=== PATIENT | female | born 1960 | race Caucasian/White ===

== ENCOUNTER 2016-12-08 03:29 | Inpatient (IN) | payer OTHER ==
[2016-12-08] VITALS (8 sets, daily range): BP systolic 100–114; BP diastolic 47–77
[~2016-12-08] VITALS: Ht 180.3 cm; Wt 86.6 kg
--- NOTE | 2016-12-08 07:59 | ED NURSING NOTES ---
Clinical Report - Nurses [facility] [address] [place] [address] 12/08/2016 3:36 Patient: PERLA EVANS TRIAGE Triage time 03:41 Dec 08 2016. Acuity: LEVEL 3. Chief Complaint: BOIL. 03:31 12/08/16. SEPSIS SCREEN: Sepsis Screen. Negative (no infection suspected/documented). --03:45 Dena Rios R.N. 03:31 12/08/16. BP: 143/68. HR: 102. RR: 18. O2 saturation: 100%. Temp: 99.0 F. Pain level now 9/10. --03:45 Dena Rios R.N. Weight: 77.1 kg. Height/Length: 71 inches. BMI: 23.7. --03:40 Dena Rios R.Laine. Medications None. --03:42 Dena Rios R.N. Allergies Sulfa Antibiotics. --03:42 Dena Rios R.Laine. Medication/allergy information source: the patient. --03:45 Dena Rios R.N. History Arrived by private vehicle. Historian: patient. Accompanied by friend. Reported as (BOTH BUTTOCKS). Onset. (4 days ago). Treatment [employer]: None. SOCIAL HX: Heavy tobacco smoker- 1 pack per day. History of drug use: heroin. Recently used drugs just prior to arrival. No alcohol use. No infectious disease exposure. ABUSE ASSESSMENT: No report of abuse. SELF HARM ASSESSMENT: A self harm assessment was performed. The patient answered "no" to the question "Have you recently felt down, depressed, or hopeless?", "Have you noticed less interest or pleasure in doing things?", "Do you have thoughts of harming or killing yourself?", "Are you here because you tried to hurt yourself?", "Have you ever tried to hurt yourself before today?", "Have you recently had thoughts about harming or killing others?" and "Do you have any dangerous items in your possession?". NUTRITIONAL RISK ASSESSMENT: The nutritional risk assessment revealed no deficiencies. FUNCTIONAL ASSESSMENT: Functional assessment: no impairments noted. LEARNING NEEDS ASSESSMENT: The learning needs assessment revealed no barriers. SKIN INTEGRITY ASSESSMENT: Skin integrity risk assessment completed. No skin integrity risk identified. --03:45 Dena Rios R.N. PROBLEMS: Cervical cancer. Congestive Heart Failure. COPD - Chronic Obstructive Pulmonary Disease. --03:43 Dena Rios R.N. Fibromyalgia. Substance Abuse. --03:45 Dena Rios R.N. Hepatitis C. --05:57 Dena Rios R.N. ADDITIONAL SURGERIES: Cholecystectomy. --03:43 Dena Rios R.N. Interventions ID band on patient. --03:45 Dena Rios R.N. PHYSICAL ASSESSMENT 04:05 12/08/16. Ambulatory to room. GENERAL / NEURO / PSYCH: Alert. Appears in pain. Oriented X 4. HEENT: Pupils equal, round and reactive to light. Mucous membranes are pink. RESPIRATORY: Respirations not labored. Breath sounds within normal limits. CVS: Pulses within normal limits. EXTREMITIES: ( legs covered in old scar tissue). SKIN: Skin is warm and dry. Tenderness on the right buttock and left buttock. Increased warmth on the right buttock and left buttock. Erythema on the right buttock and left buttock. --04:05 Dena Rios R.N. NURSING PROGRESS NOTES 03:48 12/08/16. The initial plan of care for this patient includes an assessment with efforts to address the presence of pain; impairment of the integumentary system. This plan of care was discussed with the patient. Patient gowned. Patient identifiers checked. Call light placed in reach. Side rails up x 1. Bed placed in lowest position. Brakes of bed on. Patient ready for evaluation. --03:48 Dena Rios R.N. 04:05 12/08/16. Urine collected. Specimen labeled in the presence of the patient (and held). --04:05 Dena Rios R.N. 05:00 12/08/2016 Site #1 started via IV in the right antecubital space with an 20g angiocath, with aseptic technique and good blood return; one attempt. Blood drawn: rainbow set and cultures x1. Labeled in the presence of the patient and sent to the lab. Saline lock flushed with 10 mL saline. --05:07 Dena Rios R.N. 05:01 12/08/2016 Started bag #1 500 mL IV Fluids IV NS (Saline); at 999 mL/hr over 30 minute(s) via site #1 via IV pump. Allergies verified and confirmed 5 rights. IV patency established. IV site checked: no pain, redness, or swelling. IV flushed thoroughly pre- and post-medication administration. --05:07 Dena Rios R.N. 05:02 12/08/2016 Dilaudid (HYDROmorphone HCl PF) IVP 0.5 mg given over 1 minute(s) via site #1. Allergies verified, confirmed 5 rights and sedative warning given to the patient. IV patency established. IV site checked: no pain, redness, or swelling. IV flushed thoroughly pre- and post-medication administration. IVP given by RN. --05:08 Dena Rios R.N. 05:04 12/08/2016 Ativan (LORazepam) IVP 0.5 mg given over 1 minute(s) via site #1. Allergies verified, confirmed 5 rights and sedative warning given to the patient. IV patency established. IV site checked: no pain, redness, or swelling. IV flushed thoroughly pre- and post-medication administration. IVP given by RN. --05:09 Dena Rios R.N. <<STRICKEN ENTRY-- Oxygen administered by nasal cannula at 2 liters (due to multiple O2 readings in the 80's. O2 improves to 100% on O2.). --05:21 Christy Moralez R.N. --END STRIKE>> Charted On Wrong Patient --06:04 Christy Moralez R.N. 05:32 12/08/2016 IV Fluids IV NS via IV site #1 Rate Changed: bag #1 decreased to 250 mL/hr via IV pump. IV patency established. IV site checked: no pain, redness, or swelling. IV flushed thoroughly. --05:32 Dena Rios R.N. 05:35 12/08/16. Reassessment after fluids administered and medication administered. She is calm and resting quietly. Overall patient status is improved- she states feels better. --06:03 Dena Rios R.N. 06:00 12/08/2016 Hold IV Fluids IV NS: due to diagnostic studies. --06:00 Christy Moralez R.N. 06:01 12/08/16. Patient transported to [place] by stretcher. --06:05 Dena Rios R.N. 06:15 12/08/2016 Restart IV Fluids IV NS: bag #1 250 mL/hr via IV pump. IV patency established. IV site checked: no pain, redness, or swelling. IV flushed thoroughly. Confirmed 5 Rights. --06:15 Christy Moralez R.N. 06:18 12/08/16. BP: 106/69. HR: 95. RR: 16. O2 saturation: 89%. Pain level now 5/10. --06:18 Dena Rios R.N. 06:18 12/08/16. Oxygen administered by nasal cannula at 2 liters (applied for o2 sats <90%). --06:18 Dena Rios R.N. 07:02 12/08/16. Care transferred and report given (to CHELSEA Guevara). --07:02 Dena Rios R.N. 07:12 12/08/16. Care transferred and report received (STACI Fernandes). --07:12 Kendall Worley R.N. The patient reports no complaints and she is sleeping. --07:39 Mayd Calixto R.N. 07:35 12/08/16. BP: 101/70. HR: 94. RR: 14. O2 saturation: 95% on nasal cannula at 3 liters/minute. Fierro-Devlin pain scale: 0/10. --07:39 Mady Calixto R.N. 08:20 12/08/16. BP: 103/64. HR: 91. RR: 15. O2 saturation: 92% on room air. Temp: 99.7 F. Pain level now 5/10. --08:20 Mady Calixto R.N. 08:15. Patient ID band checked for patient name and birthdate: patient confirmed. Instructions provided to collect clean catch urine and patient verbalized understanding. Clean catch urine collected with return of verito-colored cloudy urine; sample sent to lab for urinalysis, culture and drug screen. Specimen labeled in the presence of the patient. --08:31 Mady Calixto R.N. 08:23 12/08/2016 IV Fluids IV NS Discontinued: bag #1 infused. Total amount infused: 1000 mL. --09:23 Mady Calixto R.N. 09:04 12/08/16. ( ultrasound at bedside). --09:04 Mady Calixto R.N. DISPOSITION / DISCHARGE Report was given. (attempted to call report to ACRN). --10:11 Mady Calixto R.N. Condition at departure: unchanged and stable. Admitted to Acute Care. Transported via stretcher by tech. Report was given. (Lucia Medina ACRN). ( Partnership agreement filled out by patient and this RN). Patient's personal items include, Pt states she has; items were placed in belongings bag and transported with the patient. --10:43 Mady Calxito R.N. 10:32 12/08/16. BP: 123/84. HR: 95. RR: 16. O2 saturation: 94% on room air. Temp: 99.3 F (oral). Pain level now 10. --10:43 Mady Calixto R.N. 10:43 12/08/16. Departure time: 1050. --10:43 Mady Calixto R.N. Transported via by nurse. --11:04 Mady Calixto R.N. Locked/Released at 12/08/2016 12:26 by Mady Calixto R.N.
--- NOTE | 2016-12-08 07:59 | ED ORDER SUMMARY ---
..... Patient: PERLA EVANS OrderSheet [facility] VisitID: [id number] [address] [place] [address] 56y, F Registration Date/Time: 12/08/2016 ORDER SHEET Weight: 77.1 kg Allergies: Sulfa Antibiotics GENERAL ORDERS: Blood Culture (No) (N/A) Urgent (04:42 12/08/2016 Edwar PAZ) (Ack 4:47 AMcQuoid ER Tech1) (5:09 EInderbitzen R.N.) CT Lower Extremity With Contrast - Right (Include both buttocks evaluate position and size of abscess. ) Urgent (04:45 12/08/2016 Edwar PAZ) (Ack 4:47 AMcQuoid ER Tech1) (6:15 RCollier R.N.) CBC w Diff Urgent (04:46 12/08/2016 Edwar PAZ) (Ack 4:47 AMcQuoid ER Tech1) (5:09 EInderbitzen R.N.) CMP Urgent (04:46 12/08/2016 Edwar PAZ) (Ack 4:47 AMcQuoid ER Tech1) (5:09 EInderbitzen R.N.) CT Lower Extremity With Contrast - Left Urgent (05:18 12/08/2016 Edwar PAZ) (Ack 5:43 CHategekimana) (6:15 RCollier R.N.) UA-Culture if indicated Urgent (08:11 12/08/2016 Edwar PAZ) (Ack 8:15 Luke) (8:31 KWilliams R.N.) Urine Drug Screen Urgent (08:11 12/08/2016 Edwar PAZ) (Ack 8:15 MAYLINoerner) (8:31 KWilliams R.N.) US Soft Tissue Anywhere (buttocks. ) Urgent (08:12 12/08/2016 Edwar PAZ) (Ack 8:15 Luke) (9:19 KWilliams R.N.) MEDICATION ORDERS: IV FLUIDS: IV NS : initial bolus 500 mL (1000 mL/hr), then 250 mL/hr for 2h (NOW); Routine (04:42 12/08/2016 Edwar PAZ) (5:07 EInderbitzen R.N.) Dilaudid IV 0.5 mg (NOW) (04:46 12/08/2016 Edwar PAZ) (5:08 EInderbitzen R.N.) Ativan IV 0.5 mg (NOW) (04:46 12/08/2016 Edwar PAZ) (5:09 EInderbitzen R.N.) ORDER SHEET NOTES: [Electronically signed by Mady Calixto R.N. (12:12/08/2016)] [Electronically signed by Orlando Randolph MD (22:09 12/09/2016)] [Electronically locked/signed by Mady Calixto R.N. (12:12/08/2016)]
--- NOTE | 2016-12-08 07:59 | ED ORDER SUMMARY ---
..... Patient: PERLA EVANS OrderSheet [facility] VisitID: [id number] [address] [place] [address] 56y, F Registration Date/Time: 12/08/2016 ORDER SHEET Weight: 77.1 kg Allergies: Sulfa Antibiotics GENERAL ORDERS: Blood Culture (No) (N/A) Urgent (04:42 12/08/2016 Edwar PAZ) (Ack 4:47 AMcQuoid ER Tech1) (5:09 EInderbitzen R.N.) CT Lower Extremity With Contrast - Right (Include both buttocks evaluate position and size of abscess. ) Urgent (04:45 12/08/2016 Edwar PAZ) (Ack 4:47 AMcQuoid ER Tech1) (6:15 RCollier R.N.) CBC w Diff Urgent (04:46 12/08/2016 Edwar PAZ) (Ack 4:47 AMcQuoid ER Tech1) (5:09 EInderbitzen R.N.) CMP Urgent (04:46 12/08/2016 Edwar PAZ) (Ack 4:47 AMcQuoid ER Tech1) (5:09 EInderbitzen R.N.) CT Lower Extremity With Contrast - Left Urgent (05:18 12/08/2016 Edwar PAZ) (Ack 5:43 CHategekimana) (6:15 RCollier R.N.) UA-Culture if indicated Urgent (08:11 12/08/2016 Edwar PAZ) (Ack 8:15 Luke) (8:31 KWilliams R.N.) Urine Drug Screen Urgent (08:11 12/08/2016 Edwar PAZ) (Ack 8:15 MAYLINoerner) (8:31 KWilliams R.N.) US Soft Tissue Anywhere (buttocks. ) Urgent (08:12 12/08/2016 Edwar PAZ) (Ack 8:15 Luke) (9:19 KWilliams R.N.) MEDICATION ORDERS: IV FLUIDS: IV NS : initial bolus 500 mL (1000 mL/hr), then 250 mL/hr for 2h (NOW); Routine (04:42 12/08/2016 Edwar PAZ) (5:07 EInderbitzen R.N.) Dilaudid IV 0.5 mg (NOW) (04:46 12/08/2016 Edwar PAZ) (5:08 EInderbitzen R.N.) Ativan IV 0.5 mg (NOW) (04:46 12/08/2016 Edwar PAZ) (5:09 EInderbitzen R.N.) ORDER SHEET NOTES: [Electronically signed by Mady Calixto R.N. (12:12/08/2016)] [Electronically signed by Orlando Randolph MD (22:09 12/09/2016)] [Electronically locked/signed by Mady Calixto R.N. (12:12/08/2016)]
--- NOTE | 2016-12-08 07:59 | ED CLINICAL REPORT ---
Clinical Report - Physicians/Mid Levels [facility] [address] [place] [address] 12/08/2016 3:36 Patient: PERLA EVANS Time Seen: 04:35 Dec 08 2016. Arrived- By private vehicle. Historian- patient. CPT: ER phys charges level 5 (#[id number]). HISTORY OF PRESENT ILLNESS Chief Complaint: LESION. This started about 4 days EKG MONITOR and is still present. It is described as painful. It has been located on the right and left buttocks. A cause has been identified. (IVDA). Similar symptoms previously: As bad. Recent medical care: Not recently seen/assessed. REVIEW OF SYSTEMS No fever, chills, sore throat or throat or cough. No difficulty breathing, hoarseness, lump in throat, enlarged lymph nodes or chest pain. No abdominal pain, nausea, diarrhea, difficulty with urination or genital lesions. No joint pain, weakness, diabetic symptoms or easy bruising. All systems otherwise negative, except as recorded above. PAST HISTORY Cervical cancer. Congestive Heart Failure. COPD - Chronic Obstructive Pulmonary Disease. Fibromyalgia. Substance Abuse. Acute renal failure : Resolved Hep C ADDITIONAL SURGERIES: Cholecystectomy. SOCIAL HISTORY History of heavy IV drug use: heroin. ADDITIONAL NOTES The nursing notes have been reviewed. PHYSICAL EXAM Vital Signs: 12/08/2016 03:31 BP: 143/68. HR: 102. RR: 18. O2 saturation: 100%. Temp: 99.0 F. Appearance: Alert. Patient in mild distress. Eyes: Conjunctivae and eyelids normal. ENT: Pharynx normal. Neck: Neck supple. CVS: Normal heart rate and rhythm. Heart sounds normal. No cardiac murmur. Respiratory: No respiratory distress. Breath sounds normal. Chest nontender. Abdomen: Nontender. Skin: Multiple large tender indurated areas with cellulitis to right buttock and left buttock. Abscess. Extremities: Normal external inspection. (right ,upper , posterior thigh is tender.). Neuro: Oriented X 3. No motor deficit. No sensory deficit. LABS, X-RAYS, AND EKG Laboratory Tests: CBC w Diff: (TERRY: 12/08/2016 05:00) ( MsgRcvd 12/08/2016 05:31) Final results Test Result Flag Units (Reference) WHITE BLOOD COUNT 13.1 H K/uL (4.5-11.5) RED BLOOD COUNT 4.84 M/uL (4.00-5.20) HEMOGLOBIN 12.7 gm/dL (12.0-16.0) HEMATOCRIT 38.9 % (36.0-46.0) MEAN CELL VOLUME 80 fL (80-100) MEAN CORPUSCULAR HGB 26 pg (26-34) MEAN CORPUSCULAR HGB CONC 33 g/dL (31-37) RED CELL DISTRIBUTION WIDTH 16.5 H % (11.6-14.8) PLATELET COUNT 307 K/uL (150-400) NEUTROPHIL % 83.2 H % (50-75) LYMPH % 10.2 L % (25-40) MONO % 5.4 % (3-14) EOSINOPHIL % 0.9 % (0-4) BASOPHIL % 0.3 % (0-2) CMP: (TERRY: 12/08/2016 05:00) ( MsgRcvd 12/08/2016 05:54) Final results Test Result Flag Units (Reference) GLUCOSE 127 H mg/dL (70-110) BUN 18 mg/dL (7-18) CREATININE 0.9 mg/dL (0.6-1.3) Estimated GFR >60 mL/min Estimated GFR- >60 mL/min Note: Persistent reduction over 3 months in eGFR<60 mL/min/1.73 m2 defines CKD. Patients with eGFR values>=60 mL/min/1.73 m2 may also have CKD if evidence ofpersistent proteinuria. Additional information may be foundat www.kidney.org. SODIUM 134 L mmol/L (136-145) POTASSIUM 4.2 mmol/L (3.5-5.1) CHLORIDE 98 mmol/L (98-107) CARBON DIOXIDE 28 mmol/L (21-32) CALCIUM 8.3 L mg/dL (8.5-10.1) TOTAL PROTEIN 8.5 H g/dL (6.4-8.2) ALBUMIN 2.8 L g/dL (3.3-5.0) BILIRUBIN, TOTAL 0.5 mg/dL (0.0-1.0) ALKALINE PHOSPHATASE 221 H U/L (46-116) AST (SGOT) 46 H U/L (15-37) ALT (SGPT) 45 U/L (12-78) . Note - Tests: (CT buttocks shows multiple large absceses, right buttocks that are deep.). PROGRESS AND PROCEDURES Course of Care: IV NS Ativan 0.5 mg IV Dilaudid 0.5 mg IV Patient is stable. Symptoms better. Discussed case with on-call health care provider, (Damaris). Reviewed test results. Agreed upon treatment plan. Health care provider will see patient in ED. Patient/family counseled. Old medical records ordered. Disposition orders written. Disposition: Admitted to Acute Care. CLINICAL IMPRESSION Multiple deep abscesses to the right lower extremity and left lower extremity. (Electronically signed by Orlando Randolph MD 12/09/2016 22:09)
--- NOTE | 2016-12-08 07:59 | ED CLINICAL REPORT ---
Clinical Report - Physicians/Mid Levels [facility] [address] [place] [address] 12/08/2016 3:36 Patient: PERLA EVANS Time Seen: 04:35 Dec 08 2016. Arrived- By private vehicle. Historian- patient. CPT: ER phys charges level 5 (#[id number]). HISTORY OF PRESENT ILLNESS Chief Complaint: LESION. 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 It is described as painful. It has been located on the right and left buttocks. A cause has been identified. (IVDA). Similar symptoms previously: As bad. Recent medical care: Not recently seen/assessed. REVIEW OF SYSTEMS No fever, chills, sore throat or throat or cough. No difficulty breathing, hoarseness, lump in throat, enlarged lymph nodes or chest pain. No abdominal pain, nausea, diarrhea, difficulty with urination or genital lesions. No joint pain, weakness, diabetic symptoms or easy bruising. All systems otherwise negative, except as recorded above. PAST HISTORY Cervical cancer. Congestive Heart Failure. COPD - Chronic Obstructive Pulmonary Disease. Fibromyalgia. Substance Abuse. Acute renal failure : Resolved Hep C ADDITIONAL SURGERIES: Cholecystectomy. SOCIAL HISTORY History of heavy IV drug use: heroin. ADDITIONAL NOTES The nursing notes have been reviewed. PHYSICAL EXAM Vital Signs: 12/08/2016 03:31 BP: 143/68. HR: 102. RR: 18. O2 saturation: 100%. Temp: 99.0 F. Appearance: Alert. Patient in mild distress. Eyes: Conjunctivae and eyelids normal. ENT: Pharynx normal. Neck: Neck supple. CVS: Normal heart rate and rhythm. Heart sounds normal. No cardiac murmur. Respiratory: No respiratory distress. Breath sounds normal. Chest nontender. Abdomen: Nontender. Skin: Multiple large tender indurated areas with cellulitis to right buttock and left buttock. Abscess. Extremities: Normal external inspection. (right ,upper , posterior thigh is tender.). Neuro: Oriented X 3. No motor deficit. No sensory deficit. LABS, X-RAYS, AND EKG Laboratory Tests: CBC w Diff: (TERRY: 12/08/2016 05:00) ( MsgRcvd 12/08/2016 05:31) Final results Test Result Flag Units (Reference) WHITE BLOOD COUNT 13.1 H K/uL (4.5-11.5) RED BLOOD COUNT 4.84 M/uL (4.00-5.20) HEMOGLOBIN 12.7 gm/dL (12.0-16.0) HEMATOCRIT 38.9 % (36.0-46.0) MEAN CELL VOLUME 80 fL (80-100) MEAN CORPUSCULAR HGB 26 pg (26-34) MEAN CORPUSCULAR HGB CONC 33 g/dL (31-37) RED CELL DISTRIBUTION WIDTH 16.5 H % (11.6-14.8) PLATELET COUNT 307 K/uL (150-400) NEUTROPHIL % 83.2 H % (50-75) LYMPH % 10.2 L % (25-40) MONO % 5.4 % (3-14) EOSINOPHIL % 0.9 % (0-4) BASOPHIL % 0.3 % (0-2) CMP: (TERRY: 12/08/2016 05:00) ( MsgRcvd 12/08/2016 05:54) Final results Test Result Flag Units (Reference) GLUCOSE 127 H mg/dL (70-110) BUN 18 mg/dL (7-18) CREATININE 0.9 mg/dL (0.6-1.3) Estimated GFR >60 mL/min Estimated GFR- >60 mL/min Note: Persistent reduction over 3 months in eGFR<60 mL/min/1.73 m2 defines CKD. Patients with eGFR values>=60 mL/min/1.73 m2 may also have CKD if evidence ofpersistent proteinuria. Additional information may be foundat www.[email or web address]. SODIUM 134 L mmol/L (136-145) POTASSIUM 4.2 mmol/L (3.5-5.1) CHLORIDE 98 mmol/L (98-107) CARBON DIOXIDE 28 mmol/L (21-32) CALCIUM 8.3 L mg/dL (8.5-10.1) TOTAL PROTEIN 8.5 H g/dL (6.4-8.2) ALBUMIN 2.8 L g/dL (3.3-5.0) BILIRUBIN, TOTAL 0.5 mg/dL (0.0-1.0) ALKALINE PHOSPHATASE 221 H U/L (46-116) AST (SGOT) 46 H U/L (15-37) ALT (SGPT) 45 U/L (12-78) . Note - Tests: (CT buttocks shows multiple large absceses, right buttocks that are deep.). PROGRESS AND PROCEDURES Course of Care: IV NS Ativan 0.5 mg IV Dilaudid 0.5 mg IV Patient is stable. Symptoms better. Discussed case with on-call health care provider, (Damaris). Reviewed test results. Agreed upon treatment plan. Health care provider will see patient in ED. Patient/family counseled. Old medical records ordered. Disposition orders written. Disposition: Admitted to Acute Care. CLINICAL IMPRESSION Multiple deep abscesses to the right lower extremity and left lower extremity. (Electronically signed by Orlando Randolph MD 12/09/2016 22:09)
--- NOTE | 2016-12-08 10:01 | DIAGNOSTIC IMAGING REPORT ---
PROCEDURE: US SOFT TISSUE ANYWHERE INDICATION: BUTTOCKS TECHNIQUE: Valenzuela scale and color Doppler ultrasound of the buttocks. COMPARISON: CT of the lower extremities 12/08/2016. FINDINGS: There is extensive subcutaneous edema of the buttocks bilaterally. There are several subcutaneous complex fluid collections bilaterally, right greater than left. There are two main pockets on the right measuring 4.3 x 3.3 x 1.7 cm and 3.3 x 2.7 x 2.0 cm. There is a single main pocket on the left measuring 2.6 x 1.5 x 0.9 cm. There is mild hyperemia. IMPRESSION: 1. Extensive bilateral buttock subcutaneous edema with bilateral complex collections most consistent with abscesses (two main pockets on the right and one on the left).
--- NOTE | 2016-12-08 14:35 | History & Physical Report ---
Information Source Information Source: Self Reliability: Fair History Chief Complaint painful buttock lesions History of Present Illness Patient is a 56 year old female that is presenting with a few day history of painful buttocks. Patient admits to injecting heroin into her buttocks and not maintaining any sterility. Patient says that all of them all occured at the same time(?) and that they were not actively draining. Patient additionally admits to using heroin within the hour therefore her history was scanty at best. Patient could not provide any further information. Patient will be sent for I&D of the abscesses which when assessed by ultrasound was seen to be 3-4 in count. Patient will be admitted to Acute care. Patient History 1. Abscess of multiple sites of buttock 2. Opioid abuse with intoxication Social History Patient is an active IV drug user, she also admits to using methamphetamines and marijuana. Patient drinks occasionally lives with her daughter and does not take care of her of her medical needs. Medications and Allergies Medications Home Medications None Current Medications Sig/Sandie Start time Last Medication Dose Route Stop Time Status Admin Lidocaine HCl See Dose 0500,1700 12/11 1700 AC 12/14 Insts (1) TOP 0505 Ketorolac 30 MG 0430,1630 12/11 1630 AC 12/14 Tromethamine IV 0438 Nicotine 14 MG QAM 12/11 1500 AC 12/14 TOP 0925 Oxycodone HCl 2.5 MG Q6H PRN 12/09 0600 AC 12/13 PO 0918 Oxycodone/ 1 TAB Q6H PRN 12/09 0600 AC 12/13 Acetaminophen PO 0916 Vancomycin HCl 1,250 MG 1100,2300 12/08 2300 AC 12/14 Sodium Chloride 250 ML IV 1045 Docusate Sodium 500 MG BID 12/08 2100 AC 12/14 PO 0925 Lactated Ringer's 500 ML ASDIRECTED 12/08 1600 AC 12/13 IV 1942 Meperidine HCl See Dose Q1H PRN 12/08 1600 AC 12/10 Insts (2) IV 0502 Triazolam 0.125 MG QHS PRN 12/08 1600 AC 12/10 PO 2303 Methadone HCl 20 MG BID 12/08 1115 AC 12/14 PO 0925 Acetaminophen 650 MG Q6H PRN 12/08 1030 AC PO Sodium Chloride 1,000 ML ASDIRECTED 12/08 1030 AC IV Vancomycin HCl See Dose .DOSING PER PHARMACY 12/08 1027 AC Insts (3) IV Ondansetron HCl 4 MG Q4H PRN 12/08 0830 AC IV Dose Instructions: (1)Lidocaine HCl: SOAK DRESSING PRIOR TO REMOVAL (2)Meperidine HCl: 12.5 - 25 MG (3)Vancomycin HCl: DOSING PER PHARMACY Allergies Coded Allergies: Sulfa Antibiotics (Severe, 12/08/16) Review of Systems Constitutional Denies: Fever, Chills, Sweats, Weakness, Malaise, Other. Respiratory Denies: Cough, Dry, SOB w/exertion, Wheezing, Hemoptysis, Pleuritic Pain, Sputum , Other. Cardiovascular Denies: Chest Pain, Palpitations, Orthopnea, PND, Edema, Light-headedness, Other. Musculoskeletal Denies: Neck Pain, Shoulder Pain, Arm Pain, Back Pain, Hand Pain, Leg Pain, Foot Pain, Other. Skin Other (- pain ful blisters buttocks ). Neurological Denies: Weakness, Numbness, Incoordination, Change in speech, Confusion, Seizures, Other. Physical Exam Vital Signs / I&Os Vital Signs Date Time Temp Pulse Resp B/P Pulse O2 O2 Flow FiO2 Ox Delivery Rate 12/14 1021 97.9 75 20 119/74 97 Room Air 0.0 12/14 0804 97.9 67 20 111/84 97 Room Air 0.0 12/14 0514 98.4 71 18 111/76 98 Room Air 0.0 12/13 2316 98.4 70 16 120/78 97 Room Air 12/13 1938 Room Air 12/13 1813 98.4 56 18 107/65 100 Room Air 12/13 1457 97.9 67 18 108/69 96 Room Air I&O 12/13 0800 12/13 1600 12/14 0000 Intake Total 732 380 652 Output Total 1000 250 400 Balance -268 130 252 General Appearance Alert, Oriented X3, No acute distress HEENT Atraumatic, PERRLA, Moist mucous membranes Lungs Clear to auscultation, Normal air movement Neck No JVD, No masses, No thyromegaly, No lymphadenopathy Cardiovascular Regular rate and rhythm, No murmurs, gallops, rubs Extremities No edema, Normal pulses, No tenderness Skin - multiple raised tenderareas on buttocks, no purulent discharge, fluctuance noted Psych/Mental Status - acutely intoxicated LAB Results Laboratory Tests 12/14 0440 Chemistry Plasma Sodium (136 - 145 mmol/L) 140 Plasma Potassium (3.5 - 5.1 mmol/L) 4.0 Plasma Chloride (98 - 107 mmol/L) 106 CO2 (Enzymatic) (21 - 32 mmol/L) 26 BUN (7 - 18 mg/dL) 26 Creatinine (0.6 - 1.3 mg/dL) 1.0 Est GFR ( Amer) (mL/min) >60 Est GFR (Non-Af Amer) (mL/min) >60 Glucose (70 - 110 mg/dL) 106 Plasma Calcium (8.5 - 10.1 mg/dL) 8.6 Assessment and Plan Problem List 1. Abscess of multiple sites of buttock Plan - will proceed to surgery - will start patient on vancomycin - will post op check patient 2. Opioid abuse with intoxication Plan - will start patient on methadone 40 mg daily - will monitor for symptoms of withdrawal
--- NOTE | 2016-12-08 19:26 | CONSULTATION REPORT ---
DATE OF CONSULTATION: 12/08/2016 CHIEF COMPLAINT: 1. Bilateral buttock abscesses HISTORY OF PRESENT ILLNESS: The patient is a 56-year-old white female, heroin addict, admitted with bilateral buttock abscesses, who last shot up heroin within 24 hours of admission. The patient states that she has a prior history of buttock abscesses, having been hospitalized at least 1 time, [facility], for incisions and drainage. The patient has had multiple incisions and drainage of her buttock abscesses at least 3 times secondary to injecting heroin. The patient states that she was developing pain in her buttock region, fever, chills, nausea and vomiting. MEDICAL/SURGICAL HISTORY: Past medical/surgical history: Significant for cholecystectomy, history of congestive heart failure, history of COPD, history of fibromyalgia, history of cervical cancer, treated with laser ablation, history of substance abuse. The patient has been in inpatient rehabilitation on at least one occasion in the past. MEDICATIONS: 1. None. ALLERGIES: 1. SULFA. SOCIAL HISTORY: She is single. She has 3 sons, 2 daughters that are alive and well. The patient smokes 5-8 cigarettes per day. Does not drink alcohol. Uses approximately 1 ounce of heroin per week. The patient is disabled. The patient obtains her money from her disability check to purchase her heroin and when no longer has the funds her friends that sell the heroin advance her the drug. FAMILY HISTORY: Mother 74 of cancer with widely metastatic disease, primary etiology unknown. Father age 60, exposure and [place]. Six brothers, 4 of which are , 7 sisters, 6 of which are . REVIEW OF SYSTEMS: The patient admits to hepatitis C. No history of blood transfusion, heart murmurs requiring antibiotics or bleeding tendencies. The remaining 12- point review of systems is negative. PHYSICAL EXAMINATION: VITAL SIGNS: Blood pressure 143/68, pulse 102, respirations 18, temperature 99. GENERAL: The patient has slurred speech secondary to medication; however, she does answer appropriately. HEENT: Normocephalic, atraumatic. Pupils equal and reactive. No scleral icterus. External auditory canals clear. No nasal septal defect or discharge. Throat is clear, not injected. The patient is edentulous. NECK: Supple. No JVD, carotid bruit or adenopathy. LUNGS: Clear. No rales, rhonchi, wheezing. HEART: Regular rhythm, no murmurs. ABDOMEN: Soft, nontender, no masses. BUTTOCKS: Examination of patient's buttocks, patient has fibrotic skin. Subcutaneous tissue firm to palpation, tender to palpation. No overlying erythema. No fluctuation. EXTREMITIES: No pretibial or ankle edema. Full range of motion, active, passively bilaterally. NEUROLOGIC: The patient grossly intact with no focal motor neurological deficit. SKIN: Warm and dry with no peripheral cyanosis. LYMPHATIC: No cervical, supraclavicular, axillary, groin adenopathy. LAB/IMAGING: White count 13.1. Ultrasound: Shows patient has 2 pockets by ultrasound in the right buttock, one measuring 4.3 x 3.3 x 1.7, the other measuring 3.3 x 2.7 x 2.0. There is a single pocket on the left measuring 2.6 x 1.5 x 0.9 containing fluid complexes consistent with abscesses. IMPRESSION: 1. Bilateral buttock abscesses. PLAN: Admission. Take this patient to the operating room and perform incision, drainage, curettage. The patient understands this situation, agrees to proceed and we will schedule her appropriately.
--- NOTE | 2016-12-08 19:52 | OPERATIVE REPORT ---
DATE OF SURGERY: 12/08/2016 SURGEON: Glen Barber III, MD SOFTWARE QUALITY TEST ENGINEER: None. PREOPERATIVE DIAGNOSIS: 1. Bilateral buttock abscesses POSTOPERATIVE DIAGNOSIS: 1. Bilateral buttock abscesses PROCEDURES PERFORMED: 1. Incision, drainage of left buttock abscesses, measuring 2.6 x 1.5 and a depth of approximately 3 cm 2. Incision, drainage of right buttock abscess measuring approximately 4.3 x 3.3 with a depth of approximately 2.5 cm. Abscess measuring 3.3 x 2.7, depth of approximately 3 cm ANESTHESIA: General endotracheal. COMPLICATIONS: There were no intraoperative or anesthetic complications. INDICATIONS: The patient is a 56-year-old female, heroin addict, with multiple buttock abscesses secondary to heroin injection, scheduled for incision, drainage. SURGICAL FINDINGS: The patient was noted to have a buttock abscess on the left, measuring approximately 2.6 x 1.5 and depth of approximately 3 cm. On the right, she has 2 abscesses, one measuring 4.3 x 3.3 with a depth of 2.5, a separate abscess measuring 3.3 x 2.7 with a depth approximately 3 cm, each containing purulent material and necrotic debris. SURGICAL TECHNIQUE: The patient was brought to the operating room, placed in the dorsal supine position where she underwent general endotracheal anesthesia by the anesthesiology department. After proper anesthesia had taken effect, patient was placed in the prone jackknife position. Her buttocks were prepped using Betadine and draped in a sterile fashion. Fortunately, the radiology ultrasound department marked the area of the abscesses. Because of the fibrosis we could not feel any fluctuation. It was over these markings that we were able to perform our incisions down to the abscess cavity draining the purulent fluid and obtaining cultures. The abscess cavities were then cleaned out using sharp curettage, subcutaneous tissue and necrotic debris. This was repeated on the right x2. Each wound was then irrigated copiously with warm normal saline and packed with Betadine-soaked Kerlix gauze. The patient tolerated procedure well, was extubated and transferred to the recovery room in stable condition.
[2016-12-09 00:21] VITALS: BP 117/72
[2016-12-09 05:42] VITALS: BP 125/74
[2016-12-09 10:50] VITALS: BP 111/62
[2016-12-09 14:34] VITALS: BP 111/67
--- NOTE | 2016-12-09 17:29 | Progress Note ---
Subjective General Patient seen and examined. Patients I&D site was examined with nursing during dressing changes. The area looks appropriate and has no further evidence of fluid re-accumalation nor does it have any worsening erythema. Patient has had no complaints during the day. Constitutional Denies: Fever, Chills, Sweats, Weakness, Malaise, Other. Eyes Denies: Pain, Vision Change, Conjunctival Inflammation, Eyelid Inflammation, Redness, Other. Respiratory Denies: Cough, Dry, SOB w/exertion, Wheezing, Hemoptysis, Pleuritic Pain, Sputum , Other. Cardiovascular Denies: Chest Pain, Palpitations, Orthopnea, PND, Edema, Light-headedness, Other. Gastrointestinal Denies: Nausea, Vomiting, Abdominal Pain, Diarrhea, Constipation, Melena, Hematochezia, Other. Genitourinary Denies: Dysuria, Frequency, Incontinence, Hematuria, Retention, Other. Musculoskeletal Denies: Neck Pain, Shoulder Pain, Arm Pain, Back Pain, Hand Pain, Leg Pain, Foot Pain, Other. Skin Lesions. Denies: Rash, Jaundice, Bruising, Other. Physical Exam Vital Signs / I&Os Vital Signs Date Time Temp Pulse Resp B/P Pulse O2 O2 Flow FiO2 Ox Delivery Rate 12/09 1434 98.2 84 16 111/67 98 12/09 1050 98.1 91 18 111/62 93 Room Air 0.0 12/09 0806 4.0 12/09 0745 Nasal 2.0 Cannula 12/09 0542 98.1 88 18 125/74 97 Room Air 12/09 0021 98.8 91 18 117/72 99 Nasal 3.0 Cannula 12/08 2017 2.0 12/08 2014 Nasal 2.0 Cannula 12/08 1931 86 18 100/61 97 Nasal 2.0 Cannula 12/08 1830 92 22 104/47 95 Nasal 2.0 Cannula 12/08 1802 99.0 87 24 110/72 96 Nasal 4.0 Cannula 12/08 1800 4.0 12/08 1739 90 22 108/77 97 Nasal 4.0 Cannula I&O 12/08 0800 12/08 1600 12/09 0000 Intake Total 100 246 Output Total 600 1100 Balance -500 -854 General Appearance Alert, Oriented X3, No acute distress HEENT PERRLA, Moist mucous membranes Lungs Clear to auscultation Cardiovascular Regular rate and rhythm, Normal S1 and S2, No murmurs, gallops, rubs Abdomen Soft, No tenderness, No rebound, No hepatosplenomegaly Extremities No cyanosis, No clubbing, No edema, Normal pulses, Strength = upper ext's, Strength = lower ext's Skin - I&D sites look clean, dry and have no evidence of residual infection Neurological Normal speech, Normal tone, Sensation intact, Cranial nerves intact , Strength 5/5 x4 ext's LAB Results Laboratory Tests 12/09 12/09 0335 0505 Chemistry Plasma Sodium (136 - 145 mmol/L) 140 Plasma Potassium (3.5 - 5.1 mmol/L) 4.0 Plasma Chloride (98 - 107 mmol/L) 105 CO2 (Enzymatic) (21 - 32 mmol/L) 28 BUN (7 - 18 mg/dL) 16 Creatinine (0.6 - 1.3 mg/dL) 0.8 Est GFR ( Amer) (mL/min) >60 Est GFR (Non-Af Amer) (mL/min) >60 Glucose (70 - 110 mg/dL) 110 Plasma Calcium (8.5 - 10.1 mg/dL) 9.1 Plasma Magnesium (1.8 - 2.4 mg/dL) 2.1 Total Bilirubin (0.0 - 1.0 mg/dL) 0.5 AST (15 - 37 U/L) 49 ALT (12 - 78 U/L) 44 Alkaline Phosphatase (46 - 116 U/L) 224 Total Protein (6.4 - 8.2 g/dL) 8.4 Albumin (3.3 - 5.0 g/dL) 2.5 Hematology WBC (4.5 - 11.5 K/uL) 15.6 RBC (4.00 - 5.20 M/uL) 4.79 Hgb (12.0 - 16.0 gm/dL) 12.7 Hct (36.0 - 46.0 %) 38.7 MCV (80 - 100 fL) 81 MCH (26 - 34 pg) 27 RDW (11.6 - 14.8 %) 16.6 Neut % (Auto) (50 - 75 %) 87.0 Lymph % (Auto) (25 - 40 %) 8.2 Bertie % (Auto) (3 - 14 %) 4.3 Eos % (Auto) (0 - 4 %) 0 Baso % (Auto) (0 - 2 %) 0.5 Plt Count, EDTA (150 - 400 K/uL) 291 PUBS MCHC (31 - 37 g/dL) 33 Microbiology Date/Time Procedure - Status Source Growth 12/08 1830 MRSA Screen - RECD NOSE Assessment and Plan Problem List 1. Opioid abuse with intoxication Plan - will provide pain control and avoid opioids if possible - methadone to avoid withdrawal symptoms 2. Abscess of multiple sites of buttock Plan - s.p incision and drainage - wound site looks apprporiate without any evidence of continuuing infection - will continue with Iv vancomycin
[2016-12-09 18:45] VITALS: BP 120/68
--- NOTE | 2016-12-09 22:09 | ED MED RECONCILIATION SUMMARY ---
Patient: PERLA EVANS Medication Reconciliation Report [facility] VisitID: [id number] [address] [place] [address] 56y, F Registration Date/Time: 12/08/2016 Weight: 77.1 kg Height/Length: 71 in. BMI: 23.7 ALLERGIES: Sulfa Antibiotics The patient's Home Medications are listed below: NONE. The source(s) of the original Home Medication information: patient The following Medications were given to the patient in the Emergency Department: IV NS IV Fluids bolus 0, then 999 mL/hr, administered: 12/08/2016 5:01:00 AM Dilaudid [IVP] IVP 0.5 mg, administered: 12/08/2016 5:02:00 AM Ativan [IVP] IVP 0.5 mg, administered: 12/08/2016 5:04:00 AM The following Medications were prescribed to the patient: None.
--- NOTE | 2016-12-09 22:09 | ED MAR SUMMARY ---
..... Medication Administration Record [facility] [address] [place] [address] Patient: PERLA EVANS Visit ID: [id number] 56y, F Weight: 77.1 kg Height/Length: 71 in BMI: 23.7 ALLERGIES: Sulfa Antibiotics Start 05:01 12/08/2016 Dena Rios R.N., Stop 08:23 12/08/2016 Mady Calixto R.N. Medication Administered: IV NS (SALINE), Dose: IV Fluids over 30 minute(s), Rate: 999 mL/hr, Dispensed: 500 mL bag, Site: #1 right AC. Medication Ordered: IV NS : initial bolus 500 mL (1000 mL/hr), then 250 mL/hr for 2h (NOW); Routine. Given 05:02 12/08/2016 Dena Rios R.N. Medication Administered: DILAUDID [IVP] (HYDROMORPHONE HCL PF), Dose: 0.5 mg IVP over 1 minute(s), Site: #1 right AC. Medication Ordered: Dilaudid IV 0.5 mg (NOW). Given 05:04 12/08/2016 Dena Rios R.N. Medication Administered: ATIVAN [IVP] (LORAZEPAM), Dose: 0.5 mg IVP over 1 minute(s), Site: #1 right AC. Medication Ordered: Ativan IV 0.5 mg (NOW).
--- NOTE | 2016-12-09 22:09 | ED MAR SUMMARY ---
..... Medication Administration Record [facility] [address] [place] [address] Patient: PERLA EVANS Visit ID: [id number] 56y, F Weight: 77.1 kg Height/Length: 71 in BMI: 23.7 ALLERGIES: Sulfa Antibiotics Start 05:01 12/08/2016 Dena Rios R.N., Stop 08:23 12/08/2016 Mady Calixto R.N. Medication Administered: IV NS (SALINE), Dose: IV Fluids over 30 minute(s), Rate: 999 mL/hr, Dispensed: 500 mL bag, Site: #1 right AC. Medication Ordered: IV NS : initial bolus 500 mL (1000 mL/hr), then 250 mL/hr for 2h (NOW); Routine. Given 05:02 12/08/2016 Dena Rios R.N. Medication Administered: DILAUDID [IVP] (HYDROMORPHONE HCL PF), Dose: 0.5 mg IVP over 1 minute(s), Site: #1 right AC. Medication Ordered: Dilaudid IV 0.5 mg (NOW). Given 05:04 12/08/2016 Dena Rios R.N. Medication Administered: ATIVAN [IVP] (LORAZEPAM), Dose: 0.5 mg IVP over 1 minute(s), Site: #1 right AC. Medication Ordered: Ativan IV 0.5 mg (NOW).
--- NOTE | 2016-12-09 22:09 | ED MED RECONCILIATION SUMMARY ---
Patient: PERLA EVANS Medication Reconciliation Report [facility] VisitID: [id number] [address] [place] [address] 56y, F Registration Date/Time: 12/08/2016 Weight: 77.1 kg Height/Length: 71 in. BMI: 23.7 ALLERGIES: Sulfa Antibiotics The patient's Home Medications are listed below: NONE. The source(s) of the original Home Medication information: patient The following Medications were given to the patient in the Emergency Department: IV NS IV Fluids bolus 0, then 999 mL/hr, administered: 12/08/2016 5:01:00 AM Dilaudid [IVP] IVP 0.5 mg, administered: 12/08/2016 5:02:00 AM Ativan [IVP] IVP 0.5 mg, administered: 12/08/2016 5:04:00 AM The following Medications were prescribed to the patient: None.
--- NOTE | 2016-12-09 22:09 | ED DISCHARGE INSTRUCTIONS ---
Patient: PERLA EVANS General Instructions [facility] VisitID: [id number] [address] [place] [address] 56y, F Registration Date/Time: 12/08/2016 Multiple deep abscesses to the right lower extremity and left lower extremity. (Electronically signed by Orlando Randolph MD 12/09/2016 22:09)
--- NOTE | 2016-12-09 22:09 | ED DISCHARGE INSTRUCTIONS ---
Patient: PERLA EVANS General Instructions [facility] VisitID: [id number] [address] [place] [address] 56y, F Registration Date/Time: 12/08/2016 Multiple deep abscesses to the right lower extremity and left lower extremity. (Electronically signed by Orlando Randolph MD 12/09/2016 22:09)
[2016-12-09 22:19] VITALS: BP 108/63; BP 708/63
[2016-12-10 02:19] VITALS: BP 129/79
[2016-12-10 06:53] VITALS: BP 111/68
[2016-12-10 10:04] VITALS: BP 130/82
[2016-12-10 14:43] VITALS: BP 120/66
[2016-12-10 18:30] VITALS: BP 119/72
--- NOTE | 2016-12-10 19:06 | Progress Note ---
Subjective General Patient seen and examined. Patient has no complaints and dressing changes have been done routinely. Wound site looks clean and dry. Constitutional Denies: Fever, Chills, Sweats. ENT Denies: Ear Pain, Ear Discharge, Nose Pain, Nasal Discharge, Nasal Congestion, Mouth Pain, Mouth Swelling, Throat Pain, Throat Swelling, Other. Respiratory Denies: Cough, Dry, SOB w/exertion, Wheezing, Hemoptysis, Pleuritic Pain, Sputum , Other. Cardiovascular Denies: Chest Pain, Palpitations, Orthopnea, PND, Edema, Light-headedness, Other. Gastrointestinal Denies: Nausea, Vomiting, Abdominal Pain, Diarrhea, Constipation, Melena, Hematochezia, Other. Genitourinary Denies: Dysuria, Frequency, Incontinence, Hematuria, Retention, Other. Musculoskeletal Denies: Neck Pain, Shoulder Pain, Arm Pain, Back Pain, Hand Pain, Leg Pain, Foot Pain, Other. Skin Other (surgical wound pain ). Physical Exam Vital Signs / I&Os Vital Signs Date Time Temp Pulse Resp B/P Pulse O2 O2 Flow FiO2 Ox Delivery Rate 12/10 1830 98.1 74 16 119/72 98 12/10 1443 97.9 69 18 120/66 09 12/10 1004 97.5 88 18 130/82 100 Room Air 0.0 12/10 0900 Room Air 12/10 0653 97.7 74 16 111/68 96 Room Air 0.0 12/10 0219 98.1 80 16 129/79 98 Room Air 0.0 12/09 2219 98.4 76 16 108/63 97 Room Air 0.0 12/09 2045 Room Air I&O 12/09 0800 12/09 1600 12/10 0000 Intake Total 812 1303 1160 Output Total 500 300 750 Balance 312 1003 410 General Appearance Alert, Oriented X3, No acute distress HEENT PERRLA, Moist mucous membranes Lungs Clear to auscultation Neck No JVD, No lymphadenopathy, 2+ carotid pulse wo bruit Cardiovascular Regular rate and rhythm, Normal S1 and S2, No murmurs, gallops, rubs Abdomen Soft Extremities No clubbing, No edema, Normal pulses, No tenderness, Strength = upper ext's, Strength = lower ext's Skin - the 3 I&D sites look clean dry and intact. No evidence of erythema, or exudate. Psych/Mental Status Mood normal LAB Results Laboratory Tests 12/10 12/10 0505 1030 Chemistry Plasma Sodium (136 - 145 mmol/L) 143 Plasma Potassium (3.5 - 5.1 mmol/L) 4.2 Plasma Chloride (98 - 107 mmol/L) 106 CO2 (Enzymatic) (21 - 32 mmol/L) 28 BUN (7 - 18 mg/dL) 18 Creatinine (0.6 - 1.3 mg/dL) 0.8 Est GFR ( Amer) (mL/min) >60 Est GFR (Non-Af Amer) (mL/min) >60 Glucose (70 - 110 mg/dL) 95 Plasma Calcium (8.5 - 10.1 mg/dL) 8.5 Total Bilirubin (0.0 - 1.0 mg/dL) 0.4 AST (15 - 37 U/L) 63 ALT (12 - 78 U/L) 46 Alkaline Phosphatase (46 - 116 U/L) 199 Total Protein (6.4 - 8.2 g/dL) 7.1 Albumin (3.3 - 5.0 g/dL) 2.4 Hematology WBC (4.5 - 11.5 K/uL) 7.5 RBC (4.00 - 5.20 M/uL) 4.51 Hgb (12.0 - 16.0 gm/dL) 11.7 Hct (36.0 - 46.0 %) 36.6 MCV (80 - 100 fL) 81 MCH (26 - 34 pg) 26 RDW (11.6 - 14.8 %) 16.9 Neut % (Auto) (50 - 75 %) 68.1 Lymph % (Auto) (25 - 40 %) 23.6 [place] % (Auto) (3 - 14 %) 5.6 Eos % (Auto) (0 - 4 %) 2.2 Baso % (Auto) (0 - 2 %) 0.5 Plt Count, EDTA (150 - 400 K/uL) 263 PUBS MCHC (31 - 37 g/dL) 32 Toxicology Vancomycin Trough (10.0 - 20.0 ug/mL) 14.1 Assessment and Plan Problem List 1. Abscess of multiple sites of buttock Plan - s/p I&D - wounds look clean dry and free of infection - will c/w vancomycin - vanc trough was appropriate one day ago 2. Opioid abuse with intoxication Plan - pt does not have any withdrawal symptoms - will c/w current pain and methadone regimen
[2016-12-10 22:12] VITALS: BP 110/73
[2016-12-11 02:27] VITALS: BP 119/74
[2016-12-11 06:48] VITALS: BP 110/72
[2016-12-11 10:33] VITALS: BP 120/77
[2016-12-11 14:27] VITALS: BP 115/78
--- NOTE | 2016-12-11 18:12 | Progress Note ---
Subjective General Patient seen and examined. Patient has no complaints overnight. Constitutional Weakness, Malaise. Denies: Fever, Chills, Sweats, Other. Respiratory Denies: Cough, Dry, SOB w/exertion, Wheezing, Hemoptysis, Pleuritic Pain, Sputum , Other. Cardiovascular Denies: Chest Pain, Palpitations, Orthopnea, PND, Edema, Light-headedness, Other. Gastrointestinal Denies: Nausea, Vomiting, Abdominal Pain, Diarrhea, Constipation, Melena, Hematochezia, Other. Genitourinary Denies: Dysuria, Frequency, Incontinence, Hematuria, Retention, Other. Musculoskeletal Denies: Neck Pain, Shoulder Pain, Arm Pain, Back Pain, Hand Pain, Leg Pain, Foot Pain, Other. Skin Other. Denies: Rash, Lesions, Jaundice, Bruising. Neurological Denies: Weakness, Numbness, Incoordination, Change in speech, Confusion, Seizures, Other. Physical Exam Vital Signs / I&Os Vital Signs Date Time Temp Pulse Resp B/P Pulse O2 O2 Flow FiO2 Ox Delivery Rate 12/11 1427 98.1 62 20 115/78 98 Room Air 12/11 1033 98.2 79 16 120/77 97 Room Air 12/11 0800 Room Air 12/11 0648 97.9 64 15 110/72 98 Room Air 12/11 0227 98.1 71 16 119/74 96 Room Air 12/10 2212 98.4 68 16 110/73 97 Room Air 12/10 1830 98.1 74 16 119/72 98 I&O 12/10 0800 12/10 1600 12/11 0000 Intake Total 914 330 714 Output Total 775 1000 Balance 914 -145 -286 General Appearance Alert, Oriented X3, No acute distress HEENT Atraumatic, PERRLA, Moist mucous membranes Lungs Clear to auscultation, Normal air movement Cardiovascular Regular rate and rhythm, Normal S1 and S2 Abdomen Soft, No tenderness Skin - I&D site looks appropriate - no exudate noted Neurological Normal speech, Sensation intact, Cranial nerves intact, Strength 5/ 5 x4 ext's, No lateralizing signs LAB Results Laboratory Tests 12/11 0520 Chemistry Plasma Sodium (136 - 145 mmol/L) 142 Plasma Potassium (3.5 - 5.1 mmol/L) 4.1 Plasma Chloride (98 - 107 mmol/L) 105 CO2 (Enzymatic) (21 - 32 mmol/L) 28 BUN (7 - 18 mg/dL) 17 Creatinine (0.6 - 1.3 mg/dL) 0.7 Est GFR ( Amer) (mL/min) >60 Est GFR (Non-Af Amer) (mL/min) >60 Glucose (70 - 110 mg/dL) 88 Plasma Calcium (8.5 - 10.1 mg/dL) 8.6 Total Bilirubin (0.0 - 1.0 mg/dL) 0.3 AST (15 - 37 U/L) 71 ALT (12 - 78 U/L) 56 Alkaline Phosphatase (46 - 116 U/L) 224 Total Protein (6.4 - 8.2 g/dL) 7.2 Albumin (3.3 - 5.0 g/dL) 2.4 Hematology WBC (4.5 - 11.5 K/uL) 6.4 RBC (4.00 - 5.20 M/uL) 4.55 Hgb (12.0 - 16.0 gm/dL) 11.9 Hct (36.0 - 46.0 %) 36.7 MCV (80 - 100 fL) 81 MCH (26 - 34 pg) 26 RDW (11.6 - 14.8 %) 16.5 Neut % (Auto) (50 - 75 %) 59.9 Lymph % (Auto) (25 - 40 %) 29.7 [place] % (Auto) (3 - 14 %) 5.5 Eos % (Auto) (0 - 4 %) 4.2 Baso % (Auto) (0 - 2 %) 0.7 Plt Count, EDTA (150 - 400 K/uL) 268 PUBS MCHC (31 - 37 g/dL) 32 Assessment and Plan Problem List 1. Abscess of multiple sites of buttock Plan - i&D site looks free of infection - wound changes will be bid for the time being - will c/w vancomycin given current finding of MRSA - vancomycin levels have been appropriate - will c/w current plan 2. Opioid abuse with intoxication Plan - currently patients withdrawal is controlled with methadone - will c/w current plan
[2016-12-11 18:14] VITALS: BP 128/77
[2016-12-11 22:25] VITALS: BP 126/82
[2016-12-12 02:19] VITALS: BP 122/76
[2016-12-12 07:02] VITALS: BP 122/92
[2016-12-12 10:00] VITALS: BP 120/86
[2016-12-12 16:31] VITALS: BP 125/69
--- NOTE | 2016-12-12 17:37 | Progress Note ---
Subjective General Patient seen and examined, no complaints overnight. Patients wound as per nursing look appropriate. Constitutional Denies: Fever, Chills, Sweats, Weakness, Malaise, Other. ENT Denies: Ear Pain, Ear Discharge, Nose Pain, Nasal Discharge, Nasal Congestion, Mouth Pain, Mouth Swelling, Throat Pain, Throat Swelling, Other. Respiratory Denies: Cough, Dry, SOB w/exertion, Wheezing, Hemoptysis, Pleuritic Pain, Sputum , Other. Cardiovascular Denies: Chest Pain, Palpitations, Orthopnea, PND, Edema, Light-headedness, Other. Gastrointestinal Denies: Nausea, Vomiting, Abdominal Pain, Diarrhea, Constipation, Melena, Hematochezia, Other. Genitourinary Denies: Dysuria, Frequency, Incontinence, Hematuria, Retention, Other. Musculoskeletal Denies: Neck Pain, Shoulder Pain, Arm Pain, Back Pain, Hand Pain, Leg Pain, Foot Pain, Other. Skin Denies: Rash, Lesions, Jaundice, Bruising, Other. Neurological Denies: Weakness, Numbness, Incoordination, Change in speech, Confusion, Seizures, Other. Physical Exam Vital Signs / I&Os Vital Signs Date Time Temp Pulse Resp B/P Pulse O2 O2 Flow FiO2 Ox Delivery Rate 12/12 1631 98.4 73 16 125/69 99 Room Air 0.0 12/12 1000 98.2 76 15 120/86 97 Room Air 12/12 0702 97.9 66 16 122/92 98 Room Air 12/12 0219 98.2 70 17 122/76 98 Room Air 12/11 2225 97.9 64 18 126/82 97 Room Air 0.0 12/11 1814 97.5 75 18 128/77 98 Room Air I&O 12/11 0800 12/11 1600 12/12 0000 Intake Total 811 560 515 Output Total 500 1050 750 Balance 311 -490 -235 General Appearance Alert, Oriented X3, No acute distress HEENT Atraumatic, EOMI, Moist mucous membranes Lungs Clear to auscultation, Normal air movement Neck No JVD, No masses, No thyromegaly, No lymphadenopathy Cardiovascular Regular rate and rhythm, Normal S1 and S2, No murmurs, gallops, rubs Abdomen Soft, No tenderness, No guarding, No rebound, No masses, No hepatosplenomegaly Extremities No clubbing, No edema, No tenderness, Strength = upper ext's, Strength = lower ext's Skin No Breakdown, No Significant Lesions Neurological Normal speech, Normal tone, Sensation intact, Reflexes 2+ and equal , Cranial nerves intact, Strength 5/5 x4 ext's, No lateralizing signs Psych/Mental Status Mental status normal LAB Results Laboratory Tests 12/12 12/12 0400 1025 Hematology WBC (4.5 - 11.5 K/uL) 5.9 RBC (4.00 - 5.20 M/uL) 4.87 Hgb (12.0 - 16.0 gm/dL) 12.5 Hct (36.0 - 46.0 %) 39.6 MCV (80 - 100 fL) 81 MCH (26 - 34 pg) 26 RDW (11.6 - 14.8 %) 16.4 Neut % (Auto) (50 - 75 %) 59.6 Lymph % (Auto) (25 - 40 %) 29.8 [place] % (Auto) (3 - 14 %) 5.6 Eos % (Auto) (0 - 4 %) 4.5 Baso % (Auto) (0 - 2 %) 0.5 Plt Count, EDTA (150 - 400 K/uL) 317 PUBS MCHC (31 - 37 g/dL) 32 Toxicology Vancomycin Trough (10.0 - 20.0 ug/mL) 16.0 Assessment and Plan Problem List 1. Abscess of multiple sites of buttock Plan - I&D sites looks clean dry and intact - will need additonal days of wound care to prevent continuation of this problems - will continue to monitor - will continue with IV antibiotics - last vanco trough was appropriate 2. Opioid abuse with intoxication Plan - no withdrawal symptoms on methadone
[2016-12-12 18:38] VITALS: BP 125/71
[2016-12-12 22:22] VITALS: BP 128/74
[2016-12-13 02:42] VITALS: BP 115/78
[2016-12-13 06:59] VITALS: BP 140/78
[2016-12-13 10:17] VITALS: BP 110/66
[2016-12-13 14:57] VITALS: BP 108/69
[2016-12-13 18:13] VITALS: BP 107/65
--- NOTE | 2016-12-13 18:55 | Progress Note ---
Subjective General Pt seen and examined. Wound looks appropriate, will discuss about possible discharge tomorrow. Physical Exam Vital Signs / I&Os Vital Signs Date Time Temp Pulse Resp B/P Pulse O2 O2 Flow FiO2 Ox Delivery Rate 12/14 1021 97.9 75 20 119/74 97 Room Air 0.0 12/14 0804 97.9 67 20 111/84 97 Room Air 0.0 12/14 0514 98.4 71 18 111/76 98 Room Air 0.0 12/13 2316 98.4 70 16 120/78 97 Room Air 12/13 1938 Room Air 12/13 1813 98.4 56 18 107/65 100 Room Air 12/13 1457 97.9 67 18 108/69 96 Room Air I&O 12/13 0800 12/13 1600 12/14 0000 Intake Total 732 380 652 Output Total 1000 250 400 Balance -268 130 252 General Appearance Alert, Oriented X3, No acute distress Lungs Clear to auscultation, Normal air movement Cardiovascular Regular rate and rhythm Abdomen Normal bowel sounds, Soft Extremities No edema, Normal pulses, No tenderness Skin abscesses look free of infection Psych/Mental Status Mood normal, Confused LAB Results Laboratory Tests 12/14 0440 Chemistry Plasma Sodium (136 - 145 mmol/L) 140 Plasma Potassium (3.5 - 5.1 mmol/L) 4.0 Plasma Chloride (98 - 107 mmol/L) 106 CO2 (Enzymatic) (21 - 32 mmol/L) 26 BUN (7 - 18 mg/dL) 26 Creatinine (0.6 - 1.3 mg/dL) 1.0 Est GFR ( Amer) (mL/min) >60 Est GFR (Non-Af Amer) (mL/min) >60 Glucose (70 - 110 mg/dL) 106 Plasma Calcium (8.5 - 10.1 mg/dL) 8.6 Assessment and Plan Problem List 1. Abscess of multiple sites of buttock Plan - daily dressing changes - last dose of vancomycin tomorrow - making arrangements for follow up in wound care clinic 2. Opioid abuse with intoxication Plan - will c/w methadone at current dose
[2016-12-13 23:16] VITALS: BP 120/78
[2016-12-14 05:14] VITALS: BP 11/76; BP 111/76
[2016-12-14 08:04] VITALS: BP 111/84
[2016-12-14 10:21] VITALS: BP 119/74
--- NOTE | 2016-12-14 12:54 | Provider's Discharge Care Plan ---
Problem, Goal, Plan Problem List 1. Abscess of multiple sites of buttock Instructions: - daily wound care dressing changes - follow up in wound care clinic 2. Opioid abuse with intoxication Instructions: - avoid injection of anything in the future - you will be sent with a 3 day supply of methadone - please follow up in the methadone clinic
[2016-12-14] MEDS ORDERED: KETOROLAC TROME10 MG PO (12:55)
[2016-12-14] MEDS ORDERED: METHADONE HCL10 MG PO (12:55)
--- NOTE | 2016-12-14 13:23 | Discharge Summary ---
Discharge Summary Report Admit Date 12/08/16 Discharge Date 12/14/16 Admission Diagnosis buttocks abscesses Discharge Diagnosis buttocks abscesses Brief History Patient is a 56 year old female that is presenting with a few day history of painful buttocks. Patient admits to injecting heroin into her buttocks and not maintaining any sterility. Patient says that all of them all occured at the same time(?) and that they were not actively draining. Patient additionally admits to using heroin within the hour therefore her history was scanty at best. Patient could not provide any further information. Patient will be sent for I&D of the abscesses which when assessed by ultrasound was seen to be 3-4 in count. Patient will be admitted to Acute care. Hospital Course Patient was admitted for abscesses which underwent I&D in the same day itself. Patient tolerated the procedure well and had 3 wound sites as a result. Patient was placed on IV vancomycin and underwent daily dressing changes. Pateint tolerated the procedure well and the patient underewent daily dressing changes without issue. The wounds looked appropriate however there was decreased confidence in the patient to maintain her own dressing changes. Patient was kept in the hospital until the wounds healed well. At this point the patient can be discharged. Her daughter was informed of how to do dressing changes. Additionally patient will follow up in [facility] wound clinic for further work up. Patient is being given a 3 day course of methadone and she was asked to follow up in the methadone clinic. Patient is stable for transfer. General Appearance Alert, Oriented X3, No acute distress Lungs Normal air movement Cardiovascular Normal S1, Normal S2, No murmurs, Gallops Abdomen Soft, No hepatospenomegaly Skin - buttocks wounds look clean dry and intract Psych/Mental Status Mood NL Discharge Instructions/Meds - wound changes daily - follow up in wound clinic dexter - follow up in methadone clinic
--- NOTE | 2016-12-29 16:24 | DIAGNOSTIC IMAGING REPORT ---
PROCEDURE: CT LOWER EXT W/CONTRAST-RIGHT CLINICAL INDICATION: Intravenous drug use. Bilateral thigh and buttock pain. TECHNIQUE: 125 ml of Isovue 300 injected intravenously and axial images were obtained from the from pelvis through the distal thighs with sagittal and coronal reformations. COMPARISON: None. FINDINGS: Right lower extremity: There is a 4 cm x 1.8 cm fluid collection in the subcutaneous tissues of the right posterior lower buttocks (superficial to the gluteus hood muscle) with three to four other proteinaceous fluid collections which extend caudally which involve the caudal gluteus hood muscle (3.5 cm and 3.5 cm). There is moderates soft tissue edema involving the gluteus muscles that extends into the thigh. Left lower extremity: There is moderate edema of the caudal gluteus hood muscle with four to five small proteinaceous fluid collections (tendon 15 mm). The left proximal thigh is normal. Portions of the upper pelvis are seen. Intrapelvic structures appear normal. There are moderate degenerative changes of the lower lumbar spine. IMPRESSION: 1. There are 3-4 contiguous abscesses in the posterior lower buttocks and involving the medial gluteus hood (3.5 cm- 4 cm). 2. There are 4-5 small abscesses in the left posterior buttocks (10-15 mm). 3. Findings discussed with Dr. Orlando Randolph. All CT scans at this facility use dose modulation, iterative reconstruction, and/or weight-based dosing when appropriate to reduce radiation dose to as low as reasonably achievable.
== END 2016-12-14 13:45 | disposition home or self-care (01) | DRG 383 ==
LOC: ED SRH 03:29 → TRANS SRH 08:10 → CC SRH 10:56 → ACUTE2 SRH 10:56 → CC SRH 16:56
PROVIDERS: Specialist; ADMIT Emergency Medicine
PROC: 0JB90ZZ Excision of Buttock Subcutaneous Tissue and Fascia, Open Approach (ICD-10-PCS; principal; 2016-12-08 15:15)
DX: L02.31 Cutaneous abscess of buttock (principal); I96 Gangrene, not elsewhere classified; B95.62 Methicillin resistant Staphylococcus aureus infection as the cause of diseases classified elsewhere; F11.220 Opioid dependence with intoxication, uncomplicated; S31.823A Puncture wound without foreign body of left buttock, initial encounter; S31.813A Puncture wound without foreign body of right buttock, initial encounter; W46.0XXA Contact with hypodermic needle, initial encounter; Y99.8 Other external cause status; I50.9 Heart failure, unspecified; J44.9 Chronic obstructive pulmonary disease, unspecified; B18.2 Chronic viral hepatitis C